=== PATIENT | female | born 1980 | race Caucasian/White ===

== ENCOUNTER 2017-10-19 05:04 | Emergency (ER) | payer MEDICARE, OTHER ==
[~2017-10-19] VITALS: Ht 152.4 cm; Wt 41.0 kg
[~2017-10-19 05:04] MED LIST: AMOX875 PO; TRAM50 PO
[2017-10-19 05:13] VITALS: BP 119/79; PULSE 100; RESP 12; O2SAT 96
--- NOTE | 2017-10-19 05:34 | PD ---
HPI . Chief Complaint: OD/ Ingestion Time Seen by Provider: 05:27 Travel History International Travel<30 days: No Contact w/Intl Traveler<30days: No Traveled to known affect area: No History of Present Illness HPI This patient is brought to us by law-enforcement and [employer] as a Act. She was reportedly found in someone else's apartment unresponsive. She was then uncooperative. The patient reports that she is "just high." No further history is really obtainable from the patient. She just states that she wants to go home. She does not have any idea how she would get home. PFSH Past Medical History Medical History: Unable to Obtain Tetanus Vaccination: Unknown Influenza Vaccination: No ?: Unknown Past Surgical History Surgical History: Unable to Obtain Social History Alcohol Use: Yes Tobacco Use: Yes (1PPD) Substance Use: Yes (Heroin, MEth, marijuan, cocaine) Allergies-Medications (Allergen,Severity, Reaction): Coded Allergies: acetaminophen (Unverified Allergy, Severe, 03/14/17) naproxen (Unverified Allergy, Severe, Swelling, 03/14/17) propoxyphene (Unverified Allergy, Severe, 03/14/17) sulfamethoxazole (Unverified Allergy, Severe, 03/14/17) ALLERGY trimethoprim (Unverified Allergy, Severe, 03/14/17) ALLERGY Reported Meds & Prescriptions Reported Meds & Active Scripts Active Amoxil (Amoxicillin) 875 Mg Tab 875 Mg PO BID 10 Days Ultram (Tramadol HCl) 50 Mg Tab 50 Mg PO Q6 PRN FOR PAIN Review of Systems Except as stated in HPI: all other systems reviewed are Neg Psychiatric: Positive: Substance Abuse Physical Exam Narrative GENERAL: Thin, disheveled female who appears much older than her stated age of 37. She is having difficulty keeping her eyes open. SKIN: Warm and dry. HEAD: Normocephalic/atraumatic. EYES: Pupils are equal. Extraocular movements are intact. NECK: Normal range of motion. CARDIOVASCULAR: Regular rate and rhythm. RESPIRATORY: Nonlabored respirations. MUSCULOSKELETAL: Atraumatic. NEUROLOGICAL: Nonfocal. PSYCHIATRIC: Appropriate mood and affect. Data Data Last Documented VS Vital Signs Date Time Temp Pulse Resp B/P (MAP) Pulse Ox O2 Delivery O2 Flow Rate FiO2 10/19/17 05:13 100 12 119/79 (92) 96 MDM Medical Decision Making Medical Screen Exam Complete: Yes Emergency Medical Condition: Yes Differential Diagnosis Differential diagnosis includes but is not limited to polysubstance abuse, suicidal ideation, manipulative behavior Narrative Course This patient presents to us as a [place] Act. She states that she is "high." She will be allowed to sleep it off. Diagnosis Primary Impression: Substance abuse Patient Instructions: General Instructions Disposition: 01 DISCHARGE HOME Condition: Stable Yday Gonzalez MD Oct 19, 2017 05:34
[2017-10-19 06:57] VITALS: PULSE 89; RESP 18; O2SAT 96
[2017-10-19 13:09] VITALS: BP 106/64; PULSE 78; RESP 18; O2SAT 98
== END 2017-10-19 13:38 | disposition home or self-care (01) ==
LOC: NEPC 05:04
DX: F19.10 Other psychoactive substance abuse, uncomplicated (principal)
CPT/HCPCS: 99283